=== PATIENT | female | born 1975 | race Caucasian/White ===

== ENCOUNTER 2022-01-30 02:06 | Emergency (ER) | payer MEDICAID ==
[~2022-01-30] VITALS: Ht 160 cm; Wt 87.2 kg
[2022-01-30] MEDS ORDERED: ONDANSETRON HCL 4MG/2ML INJ IV STA (03:08)
[2022-01-30] MEDS ORDERED: FAMOTIDINE 20MG/2ML VIAL IV ONE (03:15)
[2022-01-30] MEDS ORDERED: KETOROLAC 15MG/ML VIAL IV ONE (03:15)
[2022-01-30 03:56] LABS: BASOPHILS % 0.4 % (0.0-2.0); HEMATOCRIT. 36.1 % (36.0-48.0); HEMOGLOBIN. 11.9 g/dL (12.0-16.0); LYMPHOCYTES % 26.4 % (20.0-50.0); MEAN CORPUSCULAR HEMOGLOBIN 27.2 pg (28.0-32.0); MEAN CORPUSCULAR VOLUME 82.7 fL (81.0-99.0); MEAN PLATELET VOLUME 9.3 fl (7.4-10.4); NEUTROPHILS % 67.2 % (40.0-76.0); PLATELET 226 x1000/uL (130-400); RED BLOOD CELL COUNT 4.37 mill/uL (4.2-5.4)
[2022-01-30 04:02] LABS: CHLORIDE 107 mEq/L (98-107)
[2022-01-30 04:41] LABS: CLARITY URINE CLEAR (CLEAR); COLOR URINE YELLOW (YELLOW); KETONES URINE NEGATIVE (NEGATIVE); LEUKOCYTE ESTERASE URINE NEGATIVE (NEGATIVE); NITRITE URINE NEGATIVE (NEGATIVE); OCCULT BLOOD URINE NEGATIVE (NEGATIVE); PROTEIN URINE NEGATIVE (NEGATIVE); UROBILINOGEN URINE 0.2 E.U./dL (0.2-1.0)
[2022-01-30] MEDS ORDERED: ONDANSETRON HCL 4MG/2ML INJ IV NR (04:45)
[2022-01-30] MEDS ORDERED: ONDA4TAB11 PO (05:01)
[2022-01-30] MEDS ORDERED: PANT40TA51 MT (05:01)
[2022-01-30 05:45] VITALS: BP 125/68
== END 2022-01-30 06:03 | disposition home or self-care (01) ==
LOC: EDBD 02:06 → ER 02:06
DX: R10.9 Unspecified abdominal pain (principal); Z90.49 Acquired absence of other specified parts of digestive tract
CPT/HCPCS: 36415; 74176; 80053; 81003; 81025; 83690; 85025; 93005; 96374; 96375; 99285; J1885; J2405; J3490

== ENCOUNTER 2022-05-10 21:37 | Emergency (ER) | payer MEDICAID ==
[~2022-05-10] VITALS: Ht 162.6 cm; Wt 73.0 kg
[~2022-05-10 21:37] MED LIST: ONDA4TAB11 PO; PANT40TA51 MT
[2022-05-10 21:48] VITALS: BP 151/100
[2022-05-10 22:29] LABS: CLARITY URINE CLEAR (CLEAR); COLOR URINE YELLOW (YELLOW); KETONES URINE TRACE (NEGATIVE); LEUKOCYTE ESTERASE URINE NEGATIVE (NEGATIVE); NITRITE URINE NEGATIVE (NEGATIVE); OCCULT BLOOD URINE TRACE (NEGATIVE); PROTEIN URINE NEGATIVE (NEGATIVE); SPECIFIC GRAVITY URINE 1.022 (1.005-1.030)
[2022-05-11] MEDS ORDERED: HYDROCODONE/ACETAMINOPHEN 5/325MG TABLET PO STA (03:07)
[2022-05-11 03:33] LABS: BASOPHILS % 0.3 % (0.0-2.0); EOSINOPHILS % 1.5 % (0.0-5.0); HEMATOCRIT. 39.4 % (36.0-48.0); HEMOGLOBIN. 12.8 g/dL (12.0-16.0); LYMPHOCYTES % 33.9 % (20.0-50.0); MEAN CORPUSCULAR HEMOGLOBIN 27.4 pg (28.0-32.0); MEAN CORPUSCULAR VOLUME 84.2 fL (81.0-99.0); MEAN PLATELET VOLUME 9.4 fl (7.4-10.4); MONOCYTES % 6.6 % (2.0-8.0); NEUTROPHILS % 57.7 % (40.0-76.0); PLATELET 236 x1000/uL (130-400); RED BLOOD CELL COUNT 4.68 mill/uL (4.2-5.4); RED CELL DISTRIBUTION WIDTH 15.8 % (11.6-14.6)
[2022-05-11 03:41] LABS: CHLORIDE 105 mEq/L (98-107)
[2022-05-11] MEDS ORDERED: ONDA4TAB50 MT (05:48)
[2022-05-11] MEDS ORDERED: IBUP-2028 MT (05:48)
== END 2022-05-11 06:50 | disposition home or self-care (01) ==
LOC: ER 21:55
DX: R10.31 Right lower quadrant pain (principal); F41.9 Anxiety disorder, unspecified; Z98.51 Tubal ligation status; Z90.49 Acquired absence of other specified parts of digestive tract
CPT/HCPCS: 36415; 74176; 80053; 81003; 81025; 83690; 85025; 99284; Z7610